=== PATIENT | male | born 1965 | race Caucasian/White ===

== ENCOUNTER → 2022-06-22 06:50 | Outpatient (CLI) | payer OTHER, SELFPAY ==
--- NOTE | ~2022-06-22 | XR_ITS ---
XR chest 2V INDICATION: Cough. Bronchitis with shortness of breath for one month. TECHNIQUE: 2 view chest. FINDINGS: No prior studies for comparison. There is mild bilateral interstitial prominence and peribronchial cuffing. There is no focal consoli dation, pleural effusion, or pneumothorax. The cardiomediastinal silhouette is normal. IMPRESSION: 1. Findings most consistent with bronchiolitis versus an atypical or viral pneumonia. Reviewed, dictated and finalized at location A. ING CONTRACTOR IMPRESSION: 1. Findings most consistent with bronchiolitis versus an atypical or viral pne [facility].
== END ==
PROVIDERS: PCP Internal Medicine; Visit Provider Internal Medicine
DX: R05.9 Cough, unspecified (principal); R91.8 Other nonspecific abnormal finding of lung field
CPT/HCPCS: 71046

== ENCOUNTER 2022-09-04 07:30 | Outpatient (RCR) | payer OTHER, SELFPAY ==
--- NOTE | 2022-07-25 08:24 | OTOPEVAL1 ---
Assessment and note entered by Claudia Sullivan, OTR/L Evaluation Information Assessment Status Evaluation Diagnosis L and R lateral epicondylitis Subjective Information Patient presents to outpatient OT for L and R lateral epicondylitis for about a year, but it has become worse in the past 6 months. Patient reports has received x3 cortisone shots in elbow which help but eventually wear off. Patient reports L is worst than R, but the pain affects word processor strength, lifting and golf swing. Patient wants to avoid surgery if possible. Reported Pain Level Pain Score 0,3: Self Report Assessment OT Clinical Summary Duane Jimenez is a 56 year old male who presents to outpatient OT with bilateral lateral epicondylitis with L elbow worse than R. Patient reports increased pain with gripping, grasping, golfing activities, in addition to decreased word processor strength of L hand. Patient demonstrates a positive cozens test and Maudsley's test of bilateral UE with L worse than R. Patient would benefit from skilled OT for HEP instruction, modalities to facilitate healing and pain management, manual therapy, UE exercise in order to optimize functional use of bilateral UE for daily and functional tasks. Plan of Care Interventions Therapeutic Exercise,Manual Therapy,Therapeutic Activities,Hot Pack/Cold Pack,Ultrasound,Paraffin OT Services Indicated Yes Treatment Frequency and 1x/wk, 5 weeks Duration These treatments will address the objective and functional deficits as defined above. The patient will be advanced safely and appropriately in order for the patient to progress towards his/her prior level of function. Additional exercises will be introduced and as well as a comprehensive home exercise program upon discharge, if needed, ?to ensure carryover of functional gains achieved in the clinic. This treatment plan has been reviewed and agreement upon by the patient.
--- NOTE | 2022-09-04 08:13 | OTOPPROG ---
Assessment and note entered by Claudia Sullivan OTR/Elijah Evaluation Information Assessment Status Progress Diagnosis L and R lateral epicondylitis Subjective Information Patient presents to outpatient OT for L and R lateral epicondylitis for about a year, but it has become worse in the past 6 months. Patient has attended OT treatments for the past 6 weeks, and reports feels there has been progress made with L UE elbow. Patient reports L UE elbow is not perfect but is progressing. Patient reports R UE was not as bad to begin with but is also better. Assessment OT Clinical Summary Duane Jimenez is a 56 year old male who presents to outpatient OT with bilateral lateral epicondylitis with L elbow worse than R. Patient reports good progress with bilateral UE lateral epicondylitis symptoms although L still has pain but it is decreased. Patient demonstrates a a negative maudsleys test of R UE, a positive maudsleys test with L UE. Patient is pleased with progress of symptoms and would like to continue strategies to decrease pain of L UE lateral epicondylitis at home. Discussed HEP and provided additional handouts for preventing irritation of lateral epicondylitis with golfing. Patient is independent with HEP materials. Will keep chart open for an additional 4 weeks if questions or check ups are requested by patient. Plan to discharge after 4 weeks. Patient is agreeable to plan. Plan of Care Interventions Therapeutic Exercise,Manual Therapy,Therapeutic Activities,Hot Pack/Cold Pack,Ultrasound,Paraffin OT Services Indicated Yes Treatment Frequency and 0-1x/wk, 4 weeks Duration These treatments will address the objective and functional deficits as defined above. The patient will be advanced safely and appropriately in order for the patient to progress towards his/her prior level of function. Additional exercises will be introduced and as well as a comprehensive home exercise program upon discharge, if needed, ?to ensure carryover of functional gains achieved in the clinic. This treatment plan has been reviewed and agreement upon by the patient.
--- NOTE | 2022-10-03 14:09 | OTOPDC ---
Assessment and note entered by Claudia Sullivan, OTR/L Evaluation Information Assessment Status Discharge - Pt Not Present Assessment OT Clinical Summary Duane Jimenez is a 57 year old male who presents to outpatient OT with bilateral lateral epicondylitis with L elbow worse than R. After previous re- evaluation kept chart open for an additional 4 weeks if questions or check ups are requested by patient. Called and spoke with patient who reports is still making progress with elbows and is agreeable to discharge at this time. Plan to discharge from skilled OT. Plan of Care OT Services Indicated No
== END 2022-10-04 08:55 | disposition home or self-care (01) ==
LOC: ANHGOSHOT 07:30
PROVIDERS: PCP Internal Medicine; Visit Provider Nurse Practitioner
DX: M77.12 Lateral epicondylitis, left elbow (principal); M77.11 Lateral epicondylitis, right elbow
CPT/HCPCS: 97018; 97035; 97110; 97140; 97165

== ENCOUNTER → 2022-12-07 10:11 | Outpatient (CLI) | payer OTHER, SELFPAY ==
--- NOTE | ~2022-12-07 | CT_ITS ---
CT of the Abdomen and Pelvis: Indication: Abdominal pain Technique: 2.5 mm axial scans were obtained through the abdomen and pelvis following intravenous adm inistration of 100 cc of Omnipaque 350. Dose reduction technique was used on this scan by utilizing a utomated exposure control and iterative reconstruction technique. The dose-length product (DLP) was 1 012.75 mGy-cm. Findings: Scans through the lung bases are unremarkable. The liver, spleen, pancreas, gallbladder, adrenals and kidneys are within normal limits. No evidence of aortic aneurysm. No lymphadenopathy. No bowel obstruction or bowel wall thickening. There is no evidence to suggest acute appendicitis. Images through the pelvis were performed. Urinary bladder unremarkable. Prostate gland is mildly enla rged. Fat-containing left inguinal hernia present. No ascites. Impression: Fat-containing left inguinal hernia. Reviewed, dictated and finalized at [facility]. Impression: Fat-containing left inguinal hernia.
== END ==
PROVIDERS: PCP Internal Medicine; Visit Provider Internal Medicine
DX: R10.9 Unspecified abdominal pain (principal); K40.90 Unilateral inguinal hernia, without obstruction or gangrene, not specified as recurrent
CPT/HCPCS: 74177; Q9967

== ENCOUNTER 2024-02-25 11:50 | Outpatient (CLI) | payer OTHER, SELFPAY ==
--- NOTE | ~2024-02-25 | CT_ITS ---
CT sinus wo con Ordering provider: Ruben Mendoza, History: . Chronic sinusitis . Comparison: May 10, 2019 Technique: Thin slice Scans CT of the paranasal sinuses was performed with coronal and sagittal refor matted images. No IV contrast. . Automated exposure control and iterative reconstruction technique w ere employed. The dose-length product was 292.39 mGy-cm. Findings: NASAL SEPTUM: Mild left nasal configuration. OSTEOMEATAL UNITS: Bilaterally patent. NASAL TURBINATES AND NASOPHARYNX: Normal. PARANASAL SINUSES: Bilateral ethmoid sinus. Left sphenoid sinus disease. VISUALIZED MASTOIDS: Normal as visualized. BONES: The osteolytic lesion seen in the frontal bone is redemonstrated and appear unchanged from pre vious examination. Bifid posterior arch of C1. SUPERFICIAL SOFT TISSUES/VISUALIZED BRAIN PARENCHYMA: Normal. 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 Minimal bilateral ethmoid sinus disease. Left sphenoid sinus disease. Reviewed, dictated and finalized at location A.
== END 2024-02-25 11:51 ==
PROVIDERS: PCP Internal Medicine; Visit Provider Internal Medicine
DX: J32.9 Chronic sinusitis, unspecified (principal)
CPT/HCPCS: 70486

== ENCOUNTER 2024-08-18 08:13 | Outpatient (CLI) | payer OTHER, SELFPAY ==
--- NOTE | ~2024-08-18 | XR_ITS ---
XR shoulder RT min 2V Ordering provider: Ruben Mendoza, History: . Pain in right shoulder . Comparison: None. FINDINGS: BONES: No acute fracture or dislocation. JOINT SPACES: The acromioclavicular joint is normal. The glenohumeral joint is normal. SOFT TISSUES: Normal. IMPRESSION: No acute osseous abnormality right shoulder. Reviewed, dictated and finalized at location A. ICAL TESTER
== END 2024-08-18 08:14 | disposition home or self-care (01) ==
PROVIDERS: PCP Internal Medicine; Visit Provider Internal Medicine
DX: M25.511 Pain in right shoulder (principal)
CPT/HCPCS: 73030

== ENCOUNTER 2024-09-01 08:00 | Outpatient (RCR) | payer OTHER, SELFPAY ==
--- NOTE | 2024-08-19 11:58 | OPREHPOC ---
Outpatient Therapy Plan of Care This is a Multidisciplinary Plan of Care that may contain components documented by all disciplines (PT, OT, and ST.) PT Problem 1 PT Problem #1 Knowledge Deficit PT Goal 1 Goal / Goal Update *indep with HEP Target Visit 5 PT Problem 2 PT Problem #2 Pain PT Goal 1 Goal / Goal Update * pt report pain rating at worst of 2/10 Target Visit 5 PT Problem 3 PT Problem #3 Impaired Strength PT Goal 1 Goal / Goal Update increase scapular-thoracic strength, to improve posture and position of GH joint: pt maintain good position during therapy session Target Visit 5 PT Problem 4 PT Problem #4 Impaired Range of Motion PT Goal 1 Goal / Goal Update * pt reach with R arm down and across his body without pain increase Target Visit 5
--- NOTE | 2024-08-19 11:59 | PTOPEVAL1 ---
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 He is R hand dominant. Self assessment with Quick DASH rating of 27% limitation in activity level. Most pain with reaching down and across his body. With the evaluation: his R shoulder active ROM is WNL- with reports of tightness with abduction and ER motions; slightly rounded shoulder posture; tenderness over clavicle, area distal to clavicle and upper ribs-anterior and posterior. Skilled PT services are indicated for modalities to decrease pain, therapeutic exercises to improve position of GH joint and scapular strength, with education for HEP and posture/body mechanics. Plan of Care Interventions Electrical Stimulation,Hot Pack/Cold Pack,Manual Therapy,Neuro Re-education,Patient/Caregiver Education,Therapeutic Activities,Therapeutic Exercise,Ultrasound,Other Other Interventions taping PT Services Indicated Yes Treatment Frequency and 1-2 x/wk for 5 visits Duration These treatments will address the objective and functional deficits as defined above. The patient will be advanced safely and appropriately in order for the patient to progress towards his/her prior level of function. Additional exercises will be introduced and as well as a comprehensive home exercise program upon discharge, if needed, ?to ensure carryover of functional gains achieved in the clinic. This treatment plan has been reviewed and agreement upon by the patient.
--- NOTE | 2024-09-02 10:45 | PCPTNOTE ---
Patient called & cancelled scheduled appointment this date due to having another committment.
--- NOTE | 2024-10-06 11:34 | PTOPDC ---
Assessment and note entered by Kathrin Novoa, PT Assessment Status Discharge - Pt Not Present ICD-10 Condition Codes (PT) Pain in right shoulder M25.511 Onset February 2024 Subjective Information pt was not seen this date. Assessment PT Clinical Summary Tony has received 3 PT sessions, from Aug 19 to . He has not returned for any further treatment. Discharge PT. The goals were not assessed. Plan of Care PT Services Indicated No
== END 2024-10-06 13:08 | disposition home or self-care (01) ==
LOC: ANHPT 08:00
PROVIDERS: PCP Internal Medicine; Visit Provider Internal Medicine
DX: M25.511 Pain in right shoulder (principal)
CPT/HCPCS: 97110; 97140; 97161; 97530

== ENCOUNTER 2025-01-12 08:00 | Outpatient (RCR) | payer OTHER, SELFPAY ==
--- NOTE | 2024-11-30 17:13 | OTOPEVAL1 ---
Assessment and note entered by Pretty Zapata, OT Evaluation Information Assessment Status Evaluation Diagnosis Epicondylitis of L elbow ICD-10 Condition Codes (OT) Pain in left elbow M25.522 Onset several weeks ago Subjective Information Pt. reports increased pain and tightness and pain in elbow about a month ago, with history of lateral epicondylitis. Pt. is wearing wrist brace to limit supination, but states he also has to maintain slightly flexed position when sleeping, or he will wake up from pain. Pt. report exacerbation of pain with golf, yardwork, and washing hair. Pt. reports he is often sitting at a desk for work, even when standing it is a laptop which he is force to look down at laptop screen. Reported Pain Level Pain Score 3: Self Report Assessment OT Clinical Summary Pt. is 59 year old M, presenting with lateral and medial epicondylitis of L elbow, with history of epicondylitis treated with cortisone shots and previous outpatient therapy. Pt. reports that condition interferes with frequent functional activities including golfing and yardwork, and often disrupts his sleep, in addition to limiting L UE strength. Pt. will benefit from skilled OT services including therapeutic exercises HEP education and instruction, use of therapeutic modalities, therapeutic activities, and strengthening exercises to facilitate pain relief, strength, and increase overall capacity for greatest level of participation in functional activities. Plan of Care Interventions Therapeutic Exercise,Manual Therapy,Therapeutic Activities,Hot Pack/Cold Pack,Self-Care/Home Management,Ultrasound,Paraffin OT Services Indicated Yes Treatment Frequency and 1 x /week for 6 weeks Duration These treatments will address the objective and functional deficits as defined above. The patient will be advanced safely and appropriately in order for the patient to progress towards his/her prior level of function. Additional exercises will be introduced and as well as a comprehensive home exercise program upon discharge, if needed, ?to ensure carryover of functional gains achieved in the clinic. This treatment plan has been reviewed and agreement upon by the patient.
--- NOTE | 2024-11-30 17:15 | OPREHPOC ---
Outpatient Therapy Plan of Care This is a Multidisciplinary Plan of Care that may contain components documented by all disciplines (PT, OT, and ST.) OT Problem 1 OT Problem #1 Knowledge Deficit OT Goal 1 Goal / Goal Update Pt. 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 will report 1/10 pain or less in functional activities 6/7 days per week Target Visit 6 OT Problem 4 OT Problem #4 Impaired Range of Motion OT Goal 1 Goal / Goal Update Pt. will increased L forearm supination by 40 degrees without experiencing pain Target Visit 12
--- NOTE | 2025-01-12 08:48 | OTOPDC ---
Assessment and note entered by Chalino Guzman, OTR/L, CHT OT D/C Summary 01/12/25 Assessment Status Discharge Diagnosis Epicondylitis of L elbow ICD-10 Condition Codes (OT) Pain in left elbow M25.522 Subjective Information Pt. reports good improvements with therapy. He notes progress with less pain, stating that most of the day his elbow pain is 0/10. At worst in the last week his pain got up to 2/10 after some yard work or a round of golf. He is weaning out of his wrist brace, no longer feeling like he needs to wear it around the house, but will sometimes wear it at work. He is only wearing the tennis elbow brace when golfing. No longer waking up at night with pain. Assessment OT Clinical Summary Patient has completed 5 weeks of OT for left medial and lateral epicondylitis. He presents today reporting decreased pain levels at rest, with activity, and at night, noting he no longer wakes up with radiating pain into his hand. He has progressed to no pain with resistive strengthening of the elbow, forearm, wrist, and hand. Gross strength as returned to normal limits. Slight pain with Maudsley's test and no pain with Cozen's. Reviewed all materials today and patient demonstrates excellent understanding. Patient in agreement with discharge. D/C OT with HEP. Thank you for this referral. OT Services Indicated No
--- NOTE | 2025-01-12 08:49 | OPREHPOC ---
Outpatient Therapy Plan of Care This is a Multidisciplinary Plan of Care that may contain components documented by all disciplines (PT, OT, and ST.) OT Problem 1 OT Problem #1 Knowledge Deficit OT Goal 1 Goal / Goal Update Pt. 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 will report 1/10 pain or less in functional activities 6/7 days per week ---OT D/C 01/12/25--- Met Target Visit 6 OT Problem 4 OT Problem #4 Impaired Range of Motion OT Goal 1 Goal / Goal Update Pt. will increased L forearm supination by 40 degrees without experiencing pain ---OT D/C 01/12/25--- Met Target Visit 12
== END 2025-01-12 09:37 | disposition home or self-care (01) ==
LOC: ANHOT 08:00
PROVIDERS: PCP Internal Medicine; Visit Provider Family Medicine Sports Medicine
DX: M77.12 Lateral epicondylitis, left elbow (principal); M77.02 Medial epicondylitis, left elbow
CPT/HCPCS: 97018; 97110; 97140; 97165